=== PATIENT | male | born 1945 | race African-American/Black ===

== ENCOUNTER 2020-01-03 17:07 | Observation (INO) | payer MEDICARE, OTHER ==
[2020-01-03 17:44] LABS: ABSOLUTE LYMPHOCYTES (AUTO) 0.7 10^3/uL (0.5-4.7); ABSOLUTE MONOCYTES (AUTO) 0.2 10^3/uL (0.1-1.4); RED CELL DISTRIBUTION WIDTH 14.9 % (11.5-14.0); TOTAL CELLS COUNTED % (AUTO) 100 %
[2020-01-03 17:52] LABS: VENOUS BLOOD BASE EXCESS -0.1 mmol/L; VENOUS BLOOD HCO3 28.3 mmol/L (20-32); VENOUS BLOOD PCO2 60.4 mmHg (35-63); VENOUS BLOOD PH 7.29 (7.30-7.42)
[2020-01-03 18:00] LABS: ABSOLUTE NEUT (AUTO) 5.8 10^3/uL (1.7-8.2); BASOPHILS % (AUTO) 0.5 % (0-2); EOSINOPHILS % (AUTO) 0.1 % (0-6); HEMATOCRIT 47.7 % (37.9-51.0); HEMOGLOBIN 16.4 g/dL (13.5-17.0); INTERNATIONAL RATION (INR) 1.05; LYMPHOCYTES % (AUTO) 9.8 % (13-45); MEAN CORPUSCULAR HEMOGLOBIN 31.6 pg (27.0-33.4); MEAN CORPUSCULAR HGB CONC 34.5 g/dL (32.0-36.0); MEAN CORPUSCULAR VOLUME 92 fl (80-97); MONOCYTES % (AUTO) 2.3 % (3-13); PLATELET COUNT 202 10^3/uL (150-450); PROTHROMBIN TIME 13.7 SEC (11.4-15.4); SEGMENTED NEUTROPHILS % (AUTO) 87.3 % (42-78); WHITE BLOOD COUNT 6.6 10^3/uL (4.0-10.5)
[2020-01-03 18:06] LABS: APPEARANCE,URINE CLEAR; BILIRUBIN,URINE NEGATIVE (NEGATIVE); COLOR,URINE STRAW; GLUCOSE, URINE 150 mg/dL (NEGATIVE); KETONES,URINE TRACE mg/dL (NEGATIVE); LEUKOCYTE ESTERASE,URINE TRACE (NEGATIVE); NITRITE,URINE NEGATIVE (NEGATIVE); PROTEIN,URINE NEGATIVE (NEGATIVE); URINE SPECIFIC GRAVITY 1.011; UROBILINOGEN,URINE NEGATIVE mg/dL (<2.0)
[2020-01-03] MEDS ORDERED: NORMAL SALINE 1000 ML 1,000 ML IV ONE ×2 (18:16→18:56)
--- NOTE | 2020-01-03 18:27 | EKG REPORT ---
SEVERITY:- NORMAL ECG - SINUS BRADYCARDIA : Confirmed by: Jerome May MD 03-Jan-2020 18:26:29
--- NOTE | 2020-01-03 18:47 | RADIOLOGY REPORT (SQ) ---
EXAM DESCRIPTION: CHEST SINGLE VIEW IMAGES COMPLETED DATE/TIME: 01/03/2020 6:36 pm REASON FOR STUDY: hypothermia COMPARISON: None. EXAM PARAMETERS: NUMBER OF VIEWS: One view. TECHNIQUE: Single frontal radiographic view of the chest acquired. RADIATION DOSE: NA LIMITATIONS: None. FINDINGS: LUNGS AND PLEURA: There is slight haziness in the lung bases, left more than right. MEDIASTINUM AND HILAR STRUCTURES: No masses. Contour normal. HEART AND VASCULAR STRUCTURES: Heart normal in size. Normal vasculature. BONES: No acute findings. HARDWARE: None in the chest. OTHER: No other significant finding. IMPRESSION: Cannot exclude a limited pneumonia in either lung base. Findings are minimal. TECHNICAL DOCUMENTATION: JOB ID: [id number] [employer]- All Rights Reserved Reading location - IP/workstation name: [email or web address]
--- NOTE | 2020-01-03 18:54 | ER Document Report ---
ED General - General Chief Complaint: General Weakness Stated Complaint: WEAKNESS Time Seen by Provider: 01/03/20 18:09 Primary Care Provider: PAOLA WERNER MD [Primary Care Provider] - Follow up as needed - HPI Notes: Patient is a 74-year-old male who presents to the emergency department for evaluation of weakness. He states he woke up today, had a normal day. He was cutting the lawn, went to go get gas. He states all of a sudden he felt extremely drained. He got in his car, told his he was going to go back and take a nap. He states he went to get to the bathroom and was almost too weak to stand. He was able to urinate and defecate normally. He states his bowel movement is normal. He did not have any fevers or chills. He has a mild headache now, but denies 1 earlier. He states he is seeing, speaking, swallowing without difficulty. No sore throat, no dental pain. No chest pain. He states he has a chronic cough secondary to being a smoker, but states is not worse than normal. No nausea or vomiting. Normal bowel movements. Normal urination. No cuts or rashes. - Related Data Allergies/Adverse Reactions: No Known Allergies Allergy (Unverified 01/03/20 17:41) Home Medications: losartan Past Medical History - General Information source: Patient - Social History Smoking Status: Current Every Day Smoker Family History: Malignancy Patient has homicidal ideation: No - Past Medical History Cardiac Medical History: Reports: Hx Hypertension Past Surgical History: Reports: None Review of Systems - Review of Systems Constitutional: See HPI Respiratory: See HPI -: Yes All other systems reviewed and negative Physical Exam - Vital signs Vitals: Resp Pulse Ox 27 H 95 01/03/20 17:11 01/03/20 17:11 - Notes Notes: This is a 74-year-old male who appears younger than his stated age, in no acute distress. He is drowsy, GCS 14. Later on in my exam he began falling asleep while talking. Vital signs reviewed, please refer to chart. Head is normocephalic, atraumatic. Pupils equal round, reactive to light. Neck is supple without meningismus. Heart is regular rate and rhythm. Lungs are clear to auscultation bilaterally. Abdomen is soft, nontender, normoactive bowel sounds throughout. Extremities without cyanosis, clubbing. Posterior calves are nontender. Peripheral pulses are equal. Skin is warm and dry. Patient is drowsy, near somnolent, but oriented x3. Cranial nerves II - XII are grossly intact without focal neurological deficits. Strength is plus 5 out of 5 bilateral upper and lower extremities. Sensation is intact. Reflexes symmetrical. Intact [id number], rapid alternating movements, [id number]. Course - Re-evaluation Re-evalutation: 01/03/20 18:54 Patient presents to the emergency department for evaluation of generalized weakness. He presents here and is found to be hypothermic. He was placed on a Jeremy hugger. Blood work and blood cultures were obtained. He has no known history of renal failure or congestive heart failure. I will again give him a 30 cc/kg bolus. His chest x-ray findings are consistent with pneumonia. Will cover with Rocephin and Zithromax. Still awaiting chemistry, as it has been hemolyzed. 01/03/20 22:08 Laboratory investigations were largely unremarkable, with the exception of a lactic acidosis. Patient does not have a leukocytosis, but his mental status is altered. I spoke with Dr. Lucio, who given the patient's presentation, asked that a TSH and a urine drug screen be ordered. These were ordered here through the ED. Patient's TSH is in the low normal range. Drug screen is still pending. Given his hypothermia and pneumonia, patient will be admitted for further care. - Vital Signs Vital signs: Temp Pulse Resp BP Pulse Ox 97.4 F 20 181/79 H 97 01/03/20 19:00 01/03/20 20:01 01/03/20 20:01 01/03/20 20:01 - Laboratory Result Diagrams: 01/03/20 17:20 01/03/20 18:55 Laboratory results interpreted by me: 01/03/20 01/03/20 01/03/20 17:20 17:20 17:20 RDW 14.9 H Lymph % (Auto) 9.8 L [place] % (Auto) 2.3 L Seg Neutrophils % 87.3 H VBG pH 7.29 L Glucose Lactic Acid 3.2 H Total Protein Urine Glucose (UA) Urine Ketones Ur Leukocyte Esterase 01/03/20 01/03/20 01/03/20 17:45 18:55 20:47 RDW Lymph % (Auto) [place] % (Auto) Seg Neutrophils % VBG pH Glucose 167 H Lactic Acid 2.9 H Total Protein 8.3 H Urine Glucose (UA) 150 H Urine Ketones TRACE H Ur Leukocyte Esterase TRACE H - Diagnostic Test Radiology reviewed: Reports reviewed Radiology results interpreted by me: 01/03/20 18:52 Chest X-Ray 01/03/20 18:10 IMPRESSION: Cannot exclude a limited pneumonia in either lung base. Findings are minimal. 01/03/20 22:08 Per my interpretation, left lower lobe pneumonia with small effusion noted, likely bilateral pneumonia - EKG Interpretation by Me Additional EKG results interpreted by me: 01/03/20 18:54 Sinus bradycardia with a rate of 58 bpm. Normal axis and intervals. Nonspecific ST changes. He does have some J-point elevation noted anteriorly with some associated ST elevation, likely early repolarization. No old studies available for comparison. Discharge - Discharge Clinical Impression: Lactic acidosis Pneumonia Qualifiers: Laterality: bilateral Lung location: lower lobe of lung Hypothermia Qualifiers: Encounter type: initial encounter Qualified Code(s): T68.XXXA - Hypothermia, initial encounter Altered mental status Qualifiers: Coma depth: [place] coma 13-15 Condition: Stable Disposition: ADMITTED INPATIENT Admitting Provider: Khadijah (Hospitalist) Unit Admitted: IMCU Referrals: PAOLA WERNER MD [Primary Care Provider] - Follow up as needed
[2020-01-03] MEDS ORDERED: CEFTRIAXONE 1 GM/D5W RTU 1 GM/50 ML RTUPB IV ONE (18:57)
[2020-01-03] MEDS ORDERED: AZITHROMYCIN INJ 500 MG VIAL IV ONE (18:57)
[2020-01-03] MEDS: NORMAL SALINE 1000 ML 1,000 ML IV PRN ×2 (19:11→23:55)
[2020-01-03 19:47] LABS: ALBUMIN 4.5 g/dL (3.5-5.0); ALKALINE PHOSPHATASE 72 U/L (38-126); ANION GAP 9 (5-19); ASPARTATE AMINO TRANSFERASE 25 U/L (17-59); BILIRUBIN,TOTAL 0.6 mg/dL (0.2-1.3); BLOOD UREA NITROGEN 8 mg/dL (7-20); CALCIUM 9.4 mg/dL (8.4-10.2); CARBON DIOXIDE 27 mmol/L (22-30); CHLORIDE 102 mmol/L (98-107); GLUCOSE 167 mg/dL (75-110); POTASSIUM 3.9 mmol/L (3.6-5.0); TOTAL PROTEIN 8.3 g/dL (6.3-8.2)
[2020-01-03] MEDS ORDERED: ONDANSETRON HCL INJ/PF 4 MG/2 ML SDV IV PRN (21:57)
--- NOTE | 2020-01-03 22:25 | PDOC H&P ---
History of Present Illness Admission Date/PCP: PAOLA WERNER MD History of Present Illness: JEFF TRAN is a 74 year old male with a history of hypertension and obesity who was in his usual state of health until a few days ago. He said he has been feeling progressively weaker over the past few days. He has felt fatigued and just generally rundown. He denies having had a fever, cough, or shortness of breath. No nausea, vomiting, diarrhea, or abdominal pain. He has not been around anyone he knows to be sick. He works in a mortuary. He is not a smoker. He said that when he went to cut grass today he just felt really weak like his legs were going to give out on him. He was not running a fever in the ER, but his temperature was a bit low at one point and was measured 95 F. He does not have a leukocytosis. He was not hypoxic. Chest x-ray was read as having minim al opacities, but it does appear to be a little patchy and symmetrical. He is not in any respiratory distress. Past Medical History Cardiac Medical History: Reports: Hypertension Past Surgical History Past Surgical History: Reports: None Social History Smoking Status: Current Every Day Smoker Family History Family History: Arthritis, Hyperlipidemia, Hypertension, Malignancy Parental Family History Reviewed: Yes Children Family History Reviewed: Yes Sibling(s) Family History Reviewed.: Yes Medication/Allergy Home Medications: Valsartan 160 mg PO DAILY 01/03/20 Allergies/Adverse Reactions: No Known Allergies Allergy (Unverified 01/03/20 17:41) Review of Systems All systems: reviewed and no additional remarkable complaints except as stated - All systems were reviewed and were negative except as noted in the HPI Physical Exam Vital Signs: Temp Pulse Resp BP Pulse Ox 97.4 F 20 181/79 H 97 01/03/20 19:00 01/03/20 20:01 01/03/20 20:01 01/03/20 20:01 Intake & Output 01/02/20 01/03/20 01/04/20 06:59 06:59 06:59 Weight 102.058 kg General appearance: PRESENT: no acute distress, cooperative, disheveled, obese, other - Appears fatigued Head exam: PRESENT: atraumatic, normocephalic Eye exam: PRESENT: EOMI, PERRLA. ABSENT: conjunctival injection, nystagmus, scleral icterus Ear exam: PRESENT: normal external ear exam Mouth exam: PRESENT: moist, neck supple Throat exam: ABSENT: post pharyngeal erythema Neck exam: PRESENT: full ROM. ABSENT: carotid bruit, JVD, lymphadenopathy, meningismus, tenderness, thyromegaly Respiratory exam: PRESENT: clear to auscultation freddie, symmetrical, unlabored. ABSENT: accessory muscle use, chest wall tenderness, crackles, prolonged expiratory phas, rhonchi, tachypnea, wheezes Cardiovascular exam: PRESENT: RRR, +S1, +S2 Pulses: PRESENT: normal carotid pulses Vascular exam: PRESENT: normal capillary refill GI/Abdominal exam: PRESENT: normal bowel sounds, soft. ABSENT: distended, guarding, rebound, tenderness Extremities exam: ABSENT: clubbing, pedal edema Musculoskeletal exam: PRESENT: normal inspection. ABSENT: deformity Neurological exam: PRESENT: awake, oriented to person, oriented to place, oriented to situation, CN II-XII grossly intact. ABSENT: motor sensory deficit Psychiatric exam: PRESENT: flat affect Skin exam: PRESENT: dry, warm Results Laboratory Results: 01/03/20 17:20 01/03/20 18:55 01/03/20 01/03/20 01/03/20 17:20 17:20 17:20 WBC 6.6 RBC 5.20 Hgb 16.4 Hct 47.7 MCV 92 MCH 31.6 MCHC 34.5 RDW 14.9 H Plt Count 202 Seg Neutrophils % 87.3 H VBG pH VBG pCO2 VBG HCO3 VBG Base Excess Sodium Cancelled Potassium Cancelled Chloride Cancelled Carbon Dioxide Cancelled Anion Gap Cancelled BUN Cancelled Creatinine Cancelled Est GFR ( Amer) Cancelled Est GFR (Non-Af Amer) Cancelled Glucose Cancelled Lactic Acid 3.2 H Calcium Cancelled Total Bilirubin Cancelled AST Cancelled Alkaline Phosphatase Cancelled Total Protein Cancelled Albumin Cancelled TSH Urine Color Urine Appearance Urine pH Ur Specific [place] Urine Protein Urine Glucose (UA) Urine Ketones Urine Blood Urine Nitrite Ur Leukocyte Esterase Urine WBC (Auto) Urine RBC (Auto) 01/03/20 01/03/20 01/03/20 17:20 17:45 18:00 WBC RBC Hgb Hct MCV MCH MCHC RDW Plt Count Seg Neutrophils % VBG pH 7.29 L VBG pCO2 60.4 VBG HCO3 28.3 VBG Base Excess -0.1 Sodium Cancelled Potassium Cancelled Chloride Cancelled Carbon Dioxide Cancelled Anion Gap Cancelled BUN Cancelled Creatinine Cancelled Est GFR ( Amer) Cancelled Est GFR (Non-Af Amer) Cancelled Glucose Cancelled Lactic Acid Calcium Cancelled Total Bilirubin Cancelled AST Cancelled Alkaline Phosphatase Cancelled Total Protein Cancelled Albumin Cancelled TSH Urine Color STRAW Urine Appearance CLEAR Urine pH 8.0 Ur Specific [place] 1.011 Urine Protein NEGATIVE Urine Glucose (UA) 150 H Urine Ketones TRACE H Urine Blood NEGATIVE Urine Nitrite NEGATIVE Ur Leukocyte Esterase TRACE H Urine WBC (Auto) 1 Urine RBC (Auto) 2 01/03/20 01/03/20 01/03/20 18:55 18:55 20:47 WBC RBC Hgb Hct MCV MCH MCHC RDW Plt Count Seg Neutrophils % VBG pH VBG pCO2 VBG HCO3 VBG Base Excess Sodium 137.6 Potassium 3.9 Chloride 102 Carbon Dioxide 27 Anion Gap 9 BUN 8 Creatinine 0.82 Est GFR ( Amer) > 60 Est GFR (Non-Af Amer) Glucose 167 H Lactic Acid 2.9 H Calcium 9.4 Total Bilirubin 0.6 AST 25 Alkaline Phosphatase 72 Total Protein 8.3 H Albumin 4.5 TSH 0.47 Urine Color Urine Appearance Urine pH Ur Specific [place] Urine Protein Urine Glucose (UA) Urine Ketones Urine Blood Urine Nitrite Ur Leukocyte Esterase Urine WBC (Auto) Urine RBC (Auto) 01/03/20 18:55 Troponin I < 0.012 Impressions: Chest X-Ray 01/03/20 18:10 IMPRESSION: Cannot exclude a limited pneumonia in either lung base. Findings are minimal. Assessment and Plan - Diagnosis (1) Community acquired pneumonia Qualifiers: Laterality: left Lung location: lower lobe of lung Qualified Code(s): J18.9 - Pneumonia, unspecified organism Is this a current diagnosis for this admission?: Yes Plan: Empiric Rocephin and azithromycin. Blood cultures been pending. Coronavirus test is pending. (2) Lactic acidosis Is this a current diagnosis for this admission?: Yes Plan: He does not meet sepsis criteria because he only had the low temperature, but his lactate was elevated and he has received IV fluids. (3) Hypertension Qualifiers: Hypertension type: essential hypertension Qualified Code(s): I10 - Essential (primary) hypertension Is this a current diagnosis for this admission?: Yes Plan: Continue valsartan (4) Obesity (BMI 30.0-34.9) Is this a current diagnosis for this admission?: Yes Plan: Encourage lifestyle modification - Time Time Spent with patient: 35 or more minutes - Inpatient Certification Based on my medical assessment, after consideration of the patient's comorbidities, presenting symptoms, or acuity I expect that the services needed warrant INPATIENT care.: Yes I certify that my determination is in accordance with my understanding of Medicare's requirements for reasonable and necessary INPATIENT services [42 CFR 412.3e].: Yes Medical Necessity: Significant Comorbidiites Make Outpatient Treatment Too Risky, Need Close Monitoring Due to Risk of Patient Decompensation, Need For IV Fluids, Need For Continuous Telemetry Monitoring, Need for IV Antibiotics, Risk of Complication if Not Cared For in Hospital
[2020-01-04] MEDS: HEPARIN SOD (PORCINE) 5,000 UNIT/ML 1 ML VIAL SUBCUT SCH ×4 (00:06→22:11)
[2020-01-04] MEDS: ACETAMINOPHEN 325 MG TABLET PO PRN ×2 (00:11→18:27)
[2020-01-04 01:39] LABS: URINE AMPHETAMINES SCREEN NEGATIVE; URINE BARBITURATES SCREEN NEGATIVE; URINE BENZODIAZEPINES SCREEN NEGATIVE; URINE COCAINE SCREEN NEGATIVE; URINE MARIJUANA (THC) SCREEN NEGATIVE; URINE METHADONE SCREEN NEGATIVE; URINE PHENCYCLIDINE SCREEN NEGATIVE
[2020-01-04 05:55] LABS: ABSOLUTE LYMPHOCYTES (AUTO) 1.2 10^3/uL (0.5-4.7); ABSOLUTE MONOCYTES (AUTO) 0.4 10^3/uL (0.1-1.4); ABSOLUTE NEUT (AUTO) 6.3 10^3/uL (1.7-8.2); BASOPHILS % (AUTO) 0.6 % (0-2); EOSINOPHILS % (AUTO) 0.1 % (0-6); HEMATOCRIT 42.9 % (37.9-51.0); HEMOGLOBIN 14.7 g/dL (13.5-17.0); LYMPHOCYTES % (AUTO) 14.6 % (13-45); MEAN CORPUSCULAR HEMOGLOBIN 31.1 pg (27.0-33.4); MEAN CORPUSCULAR HGB CONC 34.3 g/dL (32.0-36.0); MEAN CORPUSCULAR VOLUME 91 fl (80-97); PLATELET COUNT 189 10^3/uL (150-450); RED BLOOD COUNT 4.73 10^6/uL (4.35-5.55); RED CELL DISTRIBUTION WIDTH 14.7 % (11.5-14.0); SEGMENTED NEUTROPHILS % (AUTO) 79.7 % (42-78); TOTAL CELLS COUNTED % (AUTO) 100 %; WHITE BLOOD COUNT 7.9 10^3/uL (4.0-10.5)
[2020-01-04 06:04] LABS: ANION GAP 5 (5-19); BLOOD UREA NITROGEN 9 mg/dL (7-20); CALCIUM 8.8 mg/dL (8.4-10.2); CARBON DIOXIDE 25 mmol/L (22-30); CHLORIDE 107 mmol/L (98-107); GLUCOSE 112 mg/dL (75-110); POTASSIUM 3.9 mmol/L (3.6-5.0)
[2020-01-04] MEDS: VALSARTAN 160 MG TABLET PO SCH (11:21)
[2020-01-04] MEDS ORDERED: AZITHROMYCIN 500 MG in DEXTROSE 5%-WATER 250 ML IV SCH (18:00)
--- NOTE | 2020-01-04 19:01 | PDOC PROGRESS REPORT ---
Subjective Progress Note for:: 01/04/20 Subjective:: Patient complains of experiencing dizziness for the past couple of days. This is his major concern. He denies much cough and denies any fevers. Denies any chills. Was started on valsartan 1 month ago but his symptoms did not start until 1 to 2 days ago. Concerned about this dizziness happening all of a sudden. Reason For Visit: PNEUMONIA Physical Exam Vital Signs: Temp Pulse Resp BP Pulse Ox 98.0 F 49 L 18 163/68 H 98 01/04/20 16:01 01/04/20 16:01 01/04/20 16:01 01/04/20 16:01 01/04/20 16:01 Intake & Output 01/03/20 01/04/20 01/05/20 06:59 06:59 06:59 Intake Total 3000 1340 Output Total 0 1350 Balance 3000 -10 Weight 106.4 kg General appearance: PRESENT: no acute distress, cooperative Head exam: PRESENT: normocephalic Neck exam: ABSENT: JVD Respiratory exam: PRESENT: clear to auscultation freddie, symmetrical, unlabored. ABSENT: wheezes Cardiovascular exam: PRESENT: RRR, +S1, +S2. ABSENT: tachycardia GI/Abdominal exam: PRESENT: soft. ABSENT: rebound, rigid, tenderness Extremities exam: ABSENT: calf tenderness, pedal edema Neurological exam: PRESENT: alert, awake, oriented to person, oriented to place, oriented to time Psychiatric exam: ABSENT: agitated, anxious Focused psych exam: ABSENT: pressured speech Results Laboratory Results: 01/04/20 05:12 01/04/20 05:12 01/03/20 01/03/20 01/03/20 18:55 18:55 20:47 WBC RBC Hgb Hct MCV MCH MCHC RDW Plt Count Seg Neutrophils % Sodium 137.6 Potassium 3.9 Chloride 102 Carbon Dioxide 27 Anion Gap 9 BUN 8 Creatinine 0.82 Est GFR ( Amer) > 60 Glucose 167 H Lactic Acid 2.9 H Calcium 9.4 Total Bilirubin 0.6 AST 25 Alkaline Phosphatase 72 Total Protein 8.3 H Albumin 4.5 TSH 0.47 01/03/20 01/04/20 01/04/20 23:41 05:12 05:12 WBC 7.9 RBC 4.73 Hgb 14.7 Hct 42.9 MCV 91 MCH 31.1 MCHC 34.3 RDW 14.7 H Plt Count 189 Seg Neutrophils % 79.7 H Sodium 136.6 L Potassium 3.9 Chloride 107 Carbon Dioxide 25 Anion Gap 5 BUN 9 Creatinine 0.79 Est GFR ( Amer) > 60 Glucose 112 H Lactic Acid 1.6 Calcium 8.8 Total Bilirubin AST Alkaline Phosphatase Total Protein Albumin TSH 01/03/20 17:20 Blood Blood Culture (PCR) - Final Staphylococcus Species 01/03/20 17:45 Clean Catch Midstream Urine Culture - Final 3,000 col/ml 01/03/20 18:55 Troponin I < 0.012 Impressions: Chest X-Ray 01/03/20 18:10 IMPRESSION: Cannot exclude a limited pneumonia in either lung base. Findings are minimal. Assessment and Plan - Diagnosis (1) Dizziness on standing Is this a current diagnosis for this admission?: Yes (2) Hypothermia Qualifiers: Encounter type: initial encounter Qualified Code(s): T68.XXXA - Hypother ferny, initial encounter Is this a current diagnosis for this admission?: Yes (3) Community acquired pneumonia Qualifiers: Laterality: left Lung location: lower lobe of lung Qualified Code(s): J18.9 - Pneumonia, unspecified organism Is this a current diagnosis for this admission?: Yes (4) Lactic acidosis Is this a current diagnosis for this admission?: Yes (5) Obesity (BMI 30.0-34.9) Is this a current diagnosis for this admission?: Yes - Plan Summary Summary: Orthostatics were performed which were negative Interestingly symptoms started on sitting upright in the bed. He is on telemetry I have reviewed EKG. No evidence of arrhythmia noted at this time. We will check carotid Dopplers. Patient had recent echocardiogram but I do not know the results of this. Currently being treated for questionable pneumonia though my review of chest x- ray does not seem to be any quite potent evidence of pneumonia patient is not symptomatic besides the hypothermia. On ceftriaxone and azithromycin Blood cultures obtained - Time Time Spent with patient: 15-24 minutes Anticipated discharge: Home Within: within 48 hours
[2020-01-04] MEDS ORDERED: CEFTRIAXONE 1 GM/D5W RTU 1 GM/50 ML RTUPB IV SCH (22:00)
[2020-01-05 05:55] LABS: ABSOLUTE BASOPHILS # (AUTO) 0.1 10^3/uL (0.0-0.2); ABSOLUTE EOSINOPHILS # (AUTO) 0.1 10^3/uL (0.0-0.6); ABSOLUTE LYMPHOCYTES (AUTO) 1.9 10^3/uL (0.5-4.7); ABSOLUTE MONOCYTES (AUTO) 0.5 10^3/uL (0.1-1.4); ABSOLUTE NEUT (AUTO) 3.5 10^3/uL (1.7-8.2); BASOPHILS % (AUTO) 1.1 % (0-2); EOSINOPHILS % (AUTO) 1.3 % (0-6); HEMATOCRIT 44.5 % (37.9-51.0); HEMOGLOBIN 15.2 g/dL (13.5-17.0); LYMPHOCYTES % (AUTO) 31.2 % (13-45); MEAN CORPUSCULAR HEMOGLOBIN 31.1 pg (27.0-33.4); MEAN CORPUSCULAR HGB CONC 34.2 g/dL (32.0-36.0); MEAN CORPUSCULAR VOLUME 91 fl (80-97); MONOCYTES % (AUTO) 8.1 % (3-13); PLATELET COUNT 184 10^3/uL (150-450); RED CELL DISTRIBUTION WIDTH 14.6 % (11.5-14.0); SEGMENTED NEUTROPHILS % (AUTO) 58.3 % (42-78); TOTAL CELLS COUNTED % (AUTO) 100 %; WHITE BLOOD COUNT 6.1 10^3/uL (4.0-10.5)
[2020-01-05] MEDS: HEPARIN SOD (PORCINE) 5,000 UNIT/ML 1 ML VIAL SUBCUT SCH ×3 (06:04→21:30)
[2020-01-05 06:08] LABS: BLOOD UREA NITROGEN 9 mg/dL (7-20); CALCIUM 8.9 mg/dL (8.4-10.2); CARBON DIOXIDE 26 mmol/L (22-30); CHLORIDE 106 mmol/L (98-107); GLUCOSE 94 mg/dL (75-110); POTASSIUM 3.5 mmol/L (3.6-5.0)
[2020-01-05 06:38] LABS: ANION GAP 4 (5-19)
--- NOTE | 2020-01-05 08:25 | RADIOLOGY REPORT (SQ) ---
EXAM DESCRIPTION: CAROTID DOPPLER IMAGES COMPLETED DATE/TIME: 01/04/2020 8:52 pm REASON FOR STUDY: dizziness COMPARISON: None. TECHNIQUE: Grayscale ultrasound, Doppler velocity and spectra, and color Doppler images acquired of the extra-cranial carotid and vertebral arteries. Images stored on PACS. LIMITATIONS: None. FINDINGS: RIGHT CAROTID CCA Velocities: Within normal limits. ICA Velocities Peak systolic 0.80 m/s. End diastolic 0.17 m/s. Proximal ICA/CCA peak systolic ratio 0.9. Spectra normal. No significant plaque. LEFT CAROTID CCA Velocities: Within normal limits. ICA Velocities Peak systolic 0.62 m/s. End diastolic 0.14 m/s. Proximal ICA/CCA peak systolic ratio 0.8. Spectra normal. No significant plaque. VERTEBRAL ARTERIES: Antegrade flow. Normal waveforms. SUBCLAVIAN ARTERIES: No finding. OTHER: No other significant finding. IMPRESSION: NO HEMODYNAMICALLY SIGNIFICANT STENOSIS. COMMENT: Quality ID #[id number]: Velocity criteria are extrapolated from the diameter data as defined by t he Society of Radiologists in Ultrasound Consensus Conference. Radiology 2003: 229; 340-346. TECHNICAL DOCUMENTATION: JOB ID: [id number] 2010 [employer]- All Rights Reserved Reading location - IP/workstation name: [email or web address]
[2020-01-05] MEDS: VALSARTAN 160 MG TABLET PO SCH (09:51)
[2020-01-05] MEDS ORDERED: MECLIZINE HCL 25 MG TABLET PO PRN (15:01)
--- NOTE | 2020-01-05 15:59 | PDOC PROGRESS REPORT ---
Subjective Progress Note for:: 01/05/20 Subjective:: Obtained further history from patient's today. 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 In the house, he had nausea, vomiting diarrhea and felt very weak that he could barely stand. Today, patient feels better but still got dizzy on ambulation. Mainly disequilibrium and denies vertigo. Denies any other neurological symptoms. Denies fever or chills. Nausea vomiting and diarrhea have resolved. Denies ear aches. Reason For Visit: PNEUMONIA Physical Exam Vital Signs: Temp Pulse Resp BP Pulse Ox 98.2 F 71 16 149/67 H 96 01/05/20 12:18 01/05/20 12:18 01/05/20 12:18 01/05/20 12:18 01/05/20 12:18 Intake & Output 01/04/20 01/05/20 01/06/20 06:59 06:59 06:59 Intake Total 3000 1840 Output Total 0 1975 Balance 3000 -135 Weight 106.4 kg 104.4 kg General appearance: PRESENT: no acute distress, cooperative Cardiovascular exam: PRESENT: RRR, +S1, +S2. ABSENT: bradycardia, tachycardia GI/Abdominal exam: PRESENT: soft. ABSENT: rebound, rigid, tenderness Neurological exam: PRESENT: alert, awake, oriented to person, oriented to place, oriented to time, oriented to situation Results Laboratory Results: 01/05/20 05:10 01/05/20 05:10 01/05/20 01/05/20 05:10 05:10 WBC 6.1 RBC 4.90 Hgb 15.2 Hct 44.5 MCV 91 MCH 31.1 MCHC 34.2 RDW 14.6 H Plt Count 184 Seg Neutrophils % 58.3 Sodium 136.2 L Potassium 3.5 L Chloride 106 Carbon Dioxide 26 Anion Gap 4 L BUN 9 Creatinine 0.97 Est GFR ( Amer) > 60 Glucose 94 Calcium 8.9 01/03/20 17:20 Blood Blood Culture (PCR) - Final Staphylococcus Species 01/03/20 17:45 Clean Catch Midstream Urine Culture - Final 3,000 col/ml 01/03/20 18:55 Troponin I < 0.012 Impressions: Chest X-Ray 01/03/20 18:10 IMPRESSION: Cannot exclude a limited pneumonia in either lung base. Findings are minimal. Carotid Doppler Study 01/04/20 00:00 IMPRESSION: NO HEMODYNAMICALLY SIGNIFICANT STENOSIS. Assessment and Plan - Diagnosis (1) Dizziness on standing Is this a current diagnosis for this admission?: Yes Plan: Patient still has some disequilibrium today. Not experiencing much of a headache and only upon standing. Walked with PT. Carotid ultrasound was unremarkable showing no significant stenosis. EKG is also unremarkable. Just showed some sinus bradycardia earlier. No evidence of hypotension. Checked orthostatics again today, patient's heart rate was in the 60s to 70s supine and standing and there was no evidence of orthostatic drop of blood pres sure. I am wondering if patient's dizziness could be due to exposure to sort of fumes from his lawnmower or lawnmower gas. He has some coryza so URI could be playing a role here but no evidence of an ear infection. Carboxyhemoglobin is normal today. Hypercapnia has also resolved on todays blood gas. Supportive management. We will try some meclizine. No concomitant neurological deficits to suggest stroke. Potential discharge tomorrow. (2) Hypothermia Qualifiers: Encounter type: initial encounter Qualified Code(s): T68.XXXA - Hypothermia, initial encounter Is this a current diagnosis for this admission?: Yes Plan: Resolved yesterday after passive rewarming. I do not have any source of infection at this point to attribute this to sepsis. May have been due to environmental exposure. I discontinued all antibiotics earlier this morning so I can monitor patient's vital signs to see if hypothermia recurs. (3) Community acquired pneumonia Qualifiers: Laterality: left Lung location: lower lobe of lung Qualified Code(s): J18.9 - Pneumonia, unspecified organism Is this a current diagnosis for this admission?: Yes Plan: On my evaluation of chest x-ray image, I do not see any clear pneumonia. COVID-19 test is negative. I have discontinued all antibiotics earlier. Will monitor for now. (4) Lactic acidosis Is this a current diagnosis for this admission?: Yes Plan: Resolved following IV fluids administration. The exact cause still not certain but is likely related to his hypothermia. Plan as above. (5) Obesity (BMI 30.0-34.9) Is this a current diagnosis for this admission?: Yes (6) Hypertension Qualifiers: Hypertension type: essential hypertension Qualified Code(s): I10 - Essential (primary) hypertension Is this a current diagnosis for this admission?: Yes Plan: Continue valsartan. He has been on this medication for 2 months. I do not believe his recent presentation is related to this as he has not been hypotensive. - Time Time Spent with patient: 15-24 minutes Anticipated discharge: Home Within: within 24 hours
[2020-01-05 16:01] LABS: FREE T3 2.93 pg/mL (2.77-5.27)
[2020-01-05] MEDS: MECLIZINE HCL 25 MG TABLET PO SCH ×2 (16:08→21:30)
[2020-01-05 16:31] LABS: ARTERIAL BLOOD BASE EXCESS 4.1 mmol/L; ARTERIAL BLOOD FIO2 ROOM AIR; ARTERIAL BLOOD H2CO3 1.28 mmol/L (1.05-1.35); ARTERIAL BLOOD HCO3 28.6 mmol/L (20-24); ARTERIAL BLOOD O2 SATURATION 96.8 % (94-98); ARTERIAL BLOOD PCO2 42.5 mmHg (35-45); ARTERIAL BLOOD PH 7.45 (7.35-7.45); ARTERIAL BLOOD PO2 85.4 mmHg (80-100); ARTERIAL BLOOD TOTAL CO2 29.9 mmol/L (23-27)
[2020-01-06] MEDS: HEPARIN SOD (PORCINE) 5,000 UNIT/ML 1 ML VIAL SUBCUT SCH (05:17)
[2020-01-06] MEDS: MECLIZINE HCL 25 MG TABLET PO SCH (05:17)
[2020-01-06 05:28] LABS: ABSOLUTE BASOPHILS # (AUTO) 0.1 10^3/uL (0.0-0.2); ABSOLUTE EOSINOPHILS # (AUTO) 0.2 10^3/uL (0.0-0.6); ABSOLUTE MONOCYTES (AUTO) 0.5 10^3/uL (0.1-1.4); ABSOLUTE NEUT (AUTO) 2.4 10^3/uL (1.7-8.2); BASOPHILS % (AUTO) 1.9 % (0-2); EOSINOPHILS % (AUTO) 3.8 % (0-6); HEMATOCRIT 44.7 % (37.9-51.0); HEMOGLOBIN 15.2 g/dL (13.5-17.0); LYMPHOCYTES % (AUTO) 38.4 % (13-45); MEAN CORPUSCULAR HEMOGLOBIN 31.1 pg (27.0-33.4); MEAN CORPUSCULAR VOLUME 92 fl (80-97); MONOCYTES % (AUTO) 9.4 % (3-13); PLATELET COUNT 185 10^3/uL (150-450); RED BLOOD COUNT 4.88 10^6/uL (4.35-5.55); RED CELL DISTRIBUTION WIDTH 14.6 % (11.5-14.0); SEGMENTED NEUTROPHILS % (AUTO) 46.5 % (42-78); TOTAL CELLS COUNTED % (AUTO) 100 %; WHITE BLOOD COUNT 5.3 10^3/uL (4.0-10.5)
[2020-01-06 05:46] LABS: BLOOD UREA NITROGEN 9 mg/dL (7-20); CALCIUM 8.9 mg/dL (8.4-10.2); GLUCOSE 99 mg/dL (75-110); POTASSIUM 3.4 mmol/L (3.6-5.0)
[2020-01-06 05:51] LABS: ANION GAP 5 (5-19); CARBON DIOXIDE 27 mmol/L (22-30); CHLORIDE 104 mmol/L (98-107)
[2020-01-06] MEDS: VALSARTAN 160 MG TABLET PO SCH (09:52)
--- NOTE | 2020-01-06 10:16 | PDOC DISCHARGE SUMMARY ---
Impression - Admit/DC Date/PCP Admission Date/Primary Care Provider: 01/03/20 22:23 PAOLA WERNER MD Discharge Date: 01/06/20 - Discharge Diagnosis (1) Dizziness on standing Is this a current diagnosis for this admission?: Yes (2) Viral syndrome Is this a current diagnosis for this admission?: Yes (3) Hypertension Is this a current diagnosis for this admission?: Yes (4) Community acquired pneumonia Is this a current diagnosis for this admission?: Yes (5) Hypothermia Is this a current diagnosis for this admission?: Yes (6) Lactic acidosis Is this a current diagnosis for this admission?: Yes (7) Obesity (BMI 30.0-34.9) Is this a current diagnosis for this admission?: Yes - Additional Information Resuscitation Status: Full Code Discharge Diet: Cardiac Discharge Activity: Activity As Tolerated, Balance Activity w/Rest Referrals: PAOLA WERNER MD [Primary Care Provider] - Follow up as needed Prescriptions: Meclizine HCl [Antivert 25 mg Tablet] 25 mg PO Q8 3 Days #9 tablet Home Medications: Valsartan 160 mg PO DAILY 01/03/20 Meclizine HCl [Antivert 25 mg Tablet] 25 mg PO Q8 3 Days #9 tablet 01/06/20 History of Present Illiness History of Present Illness: JEFF TRAN is a 74 year old male with a history of hypertension and obesity who was in his usual state of health until a few days ago. He said he has been feeling progressively weaker over the past few days. He has felt fatigued and just generally rundown. He denies having had a fever, cough, or shortness of breath. No nausea, vomiting, diarrhea, or abdominal pain. He has not been around anyone he knows to be sick. He works in a mortuary. He is not a smoker. He said that when he went to cut grass today he just felt really weak like his legs were going to give out on him. He was not running a fever in the ER, but his temperature was a bit low at one point and was measured 95 F. He does not have a leukocytosis. He was not hypoxic. Chest x-ray was read as having minimal opacities, but it does appear to be a little patchy and symmetrical. He is not in any respiratory distress. Hospital Course Hospital Course: The patient had a relatively uncomplicated hospital course. After further evaluation it was felt that the patient did not have a community-acquired pneumonia and antibiotics were stopped. According to the notes when the provider spoke to the patient's she reported that he had some nausea, vomiting and diarrhea at home prior to presentation to the hospital. The patient did have positive orthostatic blood pressures. It certainly could have been a volume issue. It is very difficult to pinpoint. It was also felt that he may have slight vertigo. He still feels slightly dizzy when he gets up. He will need to get up slowly and I suggested that he may want to use a cane for the next few days until he is more steady. Physical Exam Vital Signs: Temp Pulse Resp BP Pulse Ox 98.0 F 67 16 149/70 H 97 01/06/20 08:05 01/06/20 08:05 01/06/20 08:05 01/06/20 08:05 01/06/20 08:05 Intake & Output 01/05/20 01/06/20 01/07/20 06:59 06:59 06:59 Intake Total 1840 800 Output Total 1975 600 Balance -135 200 Weight 104.4 kg 104.4 kg General appearance: PRESENT: no acute distress, cooperative, obese, well- developed Head exam: PRESENT: atraumatic, normocephalic Respiratory exam: PRESENT: clear to auscultation freddie, symmetrical, unlabored. ABSENT: rales, rhonchi, tachypnea, wheezes Cardiovascular exam: PRESENT: RRR, +S1, +S2. ABSENT: diastolic murmur, irregular rhythm, systolic murmur GI/Abdominal exam: PRESENT: normal bowel sounds, soft. ABSENT: distended, tenderness Rectal exam: PRESENT: deferred Gentrourinary exam: ABSENT: indwelling catheter Neurological exam: PRESENT: alert, awake, oriented to person, oriented to place, oriented to time, oriented to situation Psychiatric exam: PRESENT: appropriate affect. ABSENT: agitated, anxious Focused psych exam: ABSENT: delusional, paranoid, restlessness Skin exam: PRESENT: dry, normal color, warm. ABSENT: rash Results Laboratory Results: WBC 5.3 10^3/uL (4.0-10.5) 01/06/20 05:11 RBC 4.88 10^6/uL (4.35-5.55) 01/06/20 05:11 Hgb 15.2 g/dL (13.5-17.0) 01/06/20 05:11 Hct 44.7 % (37.9-51.0) 01/06/20 05:11 MCV 92 fl (80-97) 01/06/20 05:11 MCH 31.1 pg (27.0-33.4) 01/06/20 05:11 MCHC 34.0 g/dL (32.0-36.0) 01/06/20 05:11 RDW 14.6 % (11.5-14.0) H 01/06/20 05:11 Plt Count 185 10^3/uL (150-450) 01/06/20 05:11 Lymph % (Auto) 38.4 % (13-45) 01/06/20 05:11 [place] % (Auto) 9.4 % (3-13) 01/06/20 05:11 Eos % (Auto) 3.8 % (0-6) 01/06/20 05:11 Baso % (Auto) 1.9 % (0-2) 01/06/20 05:11 Absolute Neuts (auto) 2.4 10^3/uL (1.7-8.2) 01/06/20 05:11 Absolute Lymphs (auto) 2.0 10^3/uL (0.5-4.7) 01/06/20 05:11 Absolute Monos (auto) 0.5 10^3/uL (0.1-1.4) 01/06/20 05:11 Absolute Eos (auto) 0.2 10^3/uL (0.0-0.6) 01/06/20 05:11 Absolute Basos (auto) 0.1 10^3/uL (0.0-0.2) 01/06/20 05:11 Seg Neutrophils % 46.5 % (42-78) 01/06/20 05:11 PT 13.7 SEC (11.4-15.4) 01/03/20 17:20 INR 1.05 01/03/20 17:20 Carbonic Acid 1.28 mmol/L (1.05-1.35) 01/05/20 16:05 HCO3/H2CO3 Ratio 22:1 01/05/20 16:05 ABG pH 7.45 (7.35-7.45) 01/05/20 16:05 ABG pCO2 42.5 mmHg (35-45) 01/05/20 16:05 ABG pO2 85.4 mmHg (80-100) 01/05/20 16:05 ABG HCO3 28.6 mmol/L (20-24) H 01/05/20 16:05 ABG Total CO2 29.9 mmol/L (23-27) H 01/05/20 16:05 ABG O2 Saturation 96.8 % (94-98) 01/05/20 16:05 ABG Base Excess 4.1 mmol/L 01/05/20 16:05 VBG pH 7.29 (7.30-7.42) L 01/03/20 17:20 VBG pCO2 60.4 mmHg (35-63) 01/03/20 17:20 VBG HCO3 28.3 mmol/L (20-32) 01/03/20 17:20 VBG Base Excess -0.1 mmol/L 01/03/20 17:20 Carboxyhemoglobin 1.4 % (0.5-1.5) 01/05/20 16:05 Carboxyhemoglobin Cancelled 01/05/20 16:05 FiO2 ROOM AIR 01/05/20 16:05 Sodium 135.8 mmol/L (137-145) L 01/06/20 05:11 Potassium 3.4 mmol/L (3.6-5.0) L 01/06/20 05:11 Chloride 104 mmol/L (98-107) 01/06/20 05:11 Carbon Dioxide 27 mmol/L (22-30) 01/06/20 05:11 Anion Gap 5 (5-19) 01/06/20 05:11 BUN 9 mg/dL (7-20) 01/06/20 05:11 Creatinine 1.03 mg/dL (0.52-1.25) 01/06/20 05:11 Est GFR ( Amer) > 60 (>60) 01/06/20 05:11 Est GFR (Non-Af Amer) Cancelled 01/03/20 18:00 Est GFR (MDRD) Non-Af > 60 (>60) 01/06/20 05:11 Glucose 99 mg/dL (75-110) 01/06/20 05:11 Lactic Acid 1.6 mmol/L (0.7-2.1) 01/03/20 23:41 Calcium 8.9 mg/dL (8.4-10.2) 01/06/20 05:11 Total Bilirubin 0.6 mg/dL (0.2-1.3) 01/03/20 18:55 Direct Bilirubin 0.0 mg/dL (0.0-0.4) 01/03/20 18:55 Neonat Total Bilirubin Not Reportable 01/03/20 18:55 Neonat Direct Bilirubin Not Reportable 01/03/20 18:55 Neonat Indirect Bili Not Reportable 01/03/20 18:55 AST 25 U/L (17-59) 01/03/20 18:55 ALT 19 U/L (<50) 01/03/20 18:55 Alkaline Phosphatase 72 U/L (38-126) 01/03/20 18:55 Troponin I < 0.012 ng/mL 01/03/20 18:55 Total Protein 8.3 g/dL (6.3-8.2) H 01/03/20 18:55 Albumin 4.5 g/dL (3.5-5.0) 01/03/20 18:55 EGFR Cancelled 01/03/20 18:00 TSH 0.47 uIU/mL (0.47-4.68) 01/03/20 18:55 Free T4 1.00 ng/dL (0.78-2.19) 01/05/20 05:10 Free T3 pg/mL 2.93 pg/mL (2.77-5.27) 01/05/20 05:10 Urine Color STRAW 01/03/20 17:45 Urine Appearance CLEAR 01/03/20 17:45 Urine pH 8.0 (5.0-9.0) 01/03/20 17:45 Ur Specific [place] 1.011 01/03/20 17:45 Urine Protein NEGATIVE mg/dL (NEGATIVE) 01/03/20 17:45 Urine Glucose (UA) 150 mg/dL (NEGATIVE) H 01/03/20 17:45 Urine Ketones TRACE mg/dL (NEGATIVE) H 01/03/20 17:45 Urine Blood NEGATIVE (NEGATIVE) 01/03/20 17:45 Urine Nitrite NEGATIVE (NEGATIVE) 01/03/20 17:45 Urine Bilirubin NEGATIVE (NEGATIVE) 01/03/20 17:45 Urine Urobilinogen NEGATIVE mg/dL (<2.0) 01/03/20 17:45 Ur Leukocyte Esterase TRACE (NEGATIVE) H 01/03/20 17:45 Urine WBC (Auto) 1 /HPF 01/03/20 17:45 Urine RBC (Auto) 2 /HPF 01/03/20 17:45 Urine Mucus (Auto) RARE /LPF 01/03/20 17:45 Urine Ascorbic Acid NEGATIVE (NEGATIVE) 01/03/20 17:45 Urine Opiates Screen NEGATIVE 01/03/20 22:50 Urine Methadone Screen NEGATIVE 01/03/20 22:50 Ur Barbiturates Screen NEGATIVE 01/03/20 22:50 Ur Phencyclidine Scrn NEGATIVE 01/03/20 22:50 Ur Amphetamines Screen NEGATIVE 01/03/20 22:50 U Benzodiazepines Scrn NEGATIVE 01/03/20 22:50 Urine Cocaine Screen NEGATIVE 01/03/20 22:50 U Marijuana (THC) Screen NEGATIVE 01/03/20 22:50 SARS-CoV-2 (PCR) NEGATIVE (NEGATIVE) 01/03/20 22:50 01/03/20 18:55 Troponin I < 0.012 Impressions: Chest X-Ray 01/03/20 18:10 IMPRESSION: Cannot exclude a limited pneumonia in either lung base. Findings are minimal. Carotid Doppler Study 01/04/20 00:00 IMPRESSION: NO HEMODYNAMICALLY SIGNIFICANT STENOSIS. Plan Health Concerns: There is no overwhelming evidence pointing to a single entity causing this event. It may likely be a combination of issues such as a viral illness with some volume depletion. There was hypothermia and lactic acidosis on admission that resolved promptly. As I explained to the patient even though I cannot give him an exact answer as to what caused this I believe that over the next several days this should resolve. Plan of Treatment: Stay well-hydrated. Follow-up with primary care provider. Several more days of meclizine. Goals: Complete resolution of this episode despite not knowing exactly the etiology. Time Spent: Greater than 30 Minutes Stroke Is this a Stroke Patient?: No Acute Heart Failure - Is this a Heart Failure Patient?: No
[2020-01-06] MEDS ORDERED: POTASSIUM CHLORIDE 10 MEQ TABLET.ER PO ONE (10:45)
[2020-01-06 10:49] VITALS: BP 153/66
== END 2020-01-06 12:10 | disposition home or self-care (01) ==
LOC: ER 17:07 → EH 22:23 → INTOOBSV 22:23 → 5 01-04 01:55
PROVIDERS: ADMIT Family Medicine; ATTEND Hospitalist
DX: R42 Dizziness and giddiness (principal); B34.9 Viral infection, unspecified; I10 Essential (primary) hypertension; T68.XXXA Hypothermia, initial encounter; X58.XXXA Exposure to other specified factors, initial encounter; E87.2 Acidosis; E66.9 Obesity, unspecified; R11.2 Nausea with vomiting, unspecified; R19.7 Diarrhea, unspecified; R51 Headache; R41.82 Altered mental status, unspecified; R06.89 Other abnormalities of breathing; Z68.34 Body mass index [BMI] 34.0-34.9, adult; R00.1 Bradycardia, unspecified; Z20.828 Contact with and (suspected) exposure to other viral communicable diseases; Z79.899 Other long term (current) drug therapy; Z82.49 Family history of ischemic heart disease and other diseases of the circulatory system
CPT/HCPCS: 93005; 99285; 96365; 36415 ×4; 87040 ×2; 87086; 84439; 82375; 82803 ×2; 83605; 84443; 85025 ×4; 85610; 87077; 80048 ×3; 80053; 81001; 84484; 87186; 80307; 84481; 87150 ×26; 93880; 71045; 93010; 97530; 97162; U0003; A9270 ×7; J1644 ×3; J7060; J7030; J0456 ×2; J0696 ×2; C9803; 87635; G0378